=== PATIENT | female | born 1985 | race Caucasian/White ===

== ENCOUNTER → 2016-05-09 | Outpatient (CLI) | payer OTHER ==
[~2016-05-09] MED LIST: DESO1TAB; DICL50TA3 PO; DOCU-94 PO; ERGO500037 PO; FERR1TAB23 PO; GADAVIST IV PRN; LEVO112T2 PO; MULT-506 PO; ONDA4TAB46 PO; PRT/20 PO; TOPI25TA99 PO; TRAM-10 PO
--- NOTE | 2016-05-09 19:13 | DIAGNOSTIC IMAGING REPORT ---
Brain MRI WITH AND WITHOUT CONTRAST HISTORY: Headache. Fever. Fatigue. TECHNIQUE: Multiplanar multisequence MRI of the brain was performed both before and after the intravenous administration of contrast. COMPARISON STUDY: None. FINDINGS: There are no areas of restricted diffusion to suggest acute infarction. The midline structures are intact. The paranasal sinuses are clear. The mastoid air cells are clear. The ventricles and sulci are within normal limits for age. There is no mass, hematoma, midline shift. The major vascular flow-voids at the skull base are well maintained. Postcontrast sequences show no areas of abnormal enhancement. IMPRESSION: No acute intracranial abnormality. Electronically signed by: Brando Camacho M.D. 05/09/2016 7:12 PM Dictated Date/Time: 05/09/2016 7:04 PM
== END | disposition home or self-care (01) ==
LOC: C.MRI 18:02
PROVIDERS: ATTEND Internal Medicine
DX: R51 Headache (principal); R53.83 Other fatigue

== ENCOUNTER → 2016-05-16 | Outpatient (CLI) | payer OTHER ==
[~2016-05-16] MED LIST changes: -GADAVIST IV PRN
[2016-05-22 18:36] LABS: MUMPS IgG VALUE 3.15; MUMPS VIRUS ANTIBODY IGM <1:20
== END | disposition home or self-care (01) ==
LOC: C.LAB1850 15:30
PROVIDERS: ATTEND Internal Medicine Infectious Disease
DX: R50.9 Fever, unspecified (principal)

== ENCOUNTER → 2016-05-28 | Outpatient (CLI) | payer OTHER ==
[2016-05-28 11:22] LABS: TOTAL IRON BINDING CAPACITY 497 mcg/dl (250-450)
[2016-06-02 01:27] LABS: ALBUMIN 3.9 G/DL (3.8-4.8); ANTI-CENTROMERE AB <1.0 NEG AI (<1.0 NEG); ANTI-SS-A <1.0 NEG AI (<1.0 NEG); ANTI-SS-B <1.0 NEG AI (<1.0 NEG); CYCLIC CITRULLINATED PEPT IGG <16 UNITS (<20); DNA ds CRITHIDIA NEGATIVE (NEGATIVE); GAMMA GLOBULIN 1.2 G/DL (0.8-1.7); MICROSOMAL AB 6 IU/ML (<9); MYELOPEROXIDASE AB <1.0 AI (<1.0); PARVOVIRUS IgG INDEX 5.9 (<0.9); PARVOVIRUS IgM INDEX 0.4 (<0.9); Sm Antibody <1.0 NEG AI (<1.0 NEG); TOTAL PROTEIN 7.2 G/DL (6.2-8.3)
== END | disposition home or self-care (01) ==
LOC: C.RAD1850 08:55
PROVIDERS: ATTEND Internal Medicine Rheumatology
DX: R51 Headache (principal); R76.8 Other specified abnormal immunological findings in serum; R50.9 Fever, unspecified; E55.9 Vitamin D deficiency, unspecified

== ENCOUNTER 2016-05-29 07:02 | Day surgery (SDC) | payer OTHER ==
[~2016-05-29] VITALS: Ht 172.7 cm; Wt 108.0 kg
[2016-05-29] VITALS (10 sets, daily range): BP systolic 125–145; BP diastolic 76–95; PULSE 63–81; TEMP 37.3; O2SAT 96–99; Ht 172.7 cm; Wt 108.0 kg
[2016-05-29] MEDS ORDERED: DESO1TAB (07:37)
[2016-05-29] MEDS ORDERED: TRAM-10 PO (07:37)
[2016-05-29] MEDS ORDERED: PRT/20 PO (07:37)
[2016-05-29] MEDS ORDERED: LEVO112T2 PO (07:37)
--- NOTE | 2016-05-29 09:38 | DIAGNOSTIC IMAGING REPORT ---
FLUOROSCOPICALLY GUIDED LUMBAR PUNCTURE CLINICAL HISTORY: Headache. FLUOROSCOPY TIME: 0.6 minutes. A single fluoroscopic spot image. PROCEDURE: The procedure, risks and benefits were discussed with the patient including the risk of spinal headache, bleeding and infection. The patient agreed to the procedure and informed written consent was obtained. The procedure was performed by Dr. Camacho following a timeout. The left L4 L4 interlaminar space was targeted. Skin overlying the space was prepped and draped in the usual sterile fashion and local anesthesia was achieved with 1% lidocaine. Under intermittent fluoroscopic guidance, a 20-gauge x 4 3/4 in. Sprotte needle was inserted into the thecal sac. A total of 10 cc of clear, colorless cerebral spinal fluid was obtained and spread amongst 4 vials. The patient tolerated the procedure well. There were no immediate complications. The specimens were sent to the laboratory at the request of the referring physician. IMPRESSION: Successful fluoroscopic guided lumbar puncture with removal of 10 cc of clear, colorless cerebral spinal fluid. No immediate complications. Opening pressure was 18 cm of H2O. Electronically signed by: Brando Camacho M.D. 05/29/2016 9:36 AM Dictated Date/Time: 05/29/2016 9:36 AM
--- NOTE | 2016-05-29 09:39 | Discharge Instructions ---
Discharge Instructions Procedure Procedure Date: May 29, 2016. Reason for visit: Fever, Intractable Headache With Opening Pressure. Discharge Discharge Date: May 29, 2016. Discharge Diagnosis: same Instructions Activity Recommendations: No limitations Return to School/Work: no limitations Recommended Home Diet: Resume Previous Diet Provider Instructions: ACTIVITY RECOMMENDATIONS: * Rest today. * Resume regular activity in one day. MEDICATIONS: * May take Tylenol or Ibuprofen as needed for pain. DIET: * Resume previous diet. SPECIAL CARE INSTRUCTIONS: Call your doctor if: * Temperature above 101 degrees F. * Pain not relieved by pain medicine ordered. * Increased drainage or redness from incision. * Notify your doctor with any questions or concerns. Call your doctor or go to the nearest Emergency Department if you experience: * Increased chest pain or shortness of breath. FOLLOW UP VISIT: Follow-up with Referring Physician as scheduled. Allergies Coded Allergies: Sulfa Antibiotics (Verified Allergy, Unknown, Breathing issues as baby, ) Diana Hernandez Recommendations: Call your doctor if: * Temperature above 101 degrees * Pain not relieved by pain medicine ordered * There is increased drainage or redness from any incision * You have any unanswered questions or concerns. Your Doctors Instructions noted above were prepared by provider Brando Camacho. Patient Signature Section: Patient Instructions Signature Page Ignacia Plascencia Patient (or Guardian) Signature/Date: I have read and understand the instructions given to me by my caregivers. Caregiver/RN/Doctor Signature/Date: The above-named patient and/or guardian has received patient instructions on this date. + Original Patient Signature Page (only) stays with chart. Please make copy for patient.
[2016-05-29] MEDS ORDERED: ACETAMINOPHEN 500 MG TAB PO PRN (09:45)
[2016-05-29 10:00] LABS: CSF APPEARANCE CLEAR; CSF COLOR COLORLESS; CSF XANTHOCHROMIC NO XANTHOCHROMIA
[2016-05-29 10:01] LABS: CSF TOTAL PROTEIN 28.9 mg/dl (15.0-45.0)
[2016-05-29] MEDS ORDERED: ACETAMINOPHEN 500 MG TAB PO ONE (10:12)
[2016-06-21 15:49] LABS: EBV DNA QUANT PCR <200 copies/mL (<200); EBV DNA QUANT SOURCE CSF; LYME DNA PCR CSF OR SYNOVIAL Not detected (Not Detected); LYME DNA SOURCE CSF; LYME IGG CSF NO BANDS DETECTED; LYME IGM CSF NO BANDS DETECTED
[2016-07-12] MEDS ORDERED: MULT-506 PO (11:41)
[2016-07-12] MEDS ORDERED: ERGO500037 PO (11:41)
[2016-07-12] MEDS ORDERED: DOCU-94 PO (11:41)
[2016-07-12] MEDS ORDERED: FERR1TAB23 PO (11:41)
[2016-07-12] MEDS ORDERED: TOPI25TA99 PO (11:41)
[2016-07-12] MEDS ORDERED: ONDA4TAB46 PO (11:41)
[2016-07-12] MEDS ORDERED: DICL50TA3 PO (11:41)
== END 2016-05-29 13:30 | disposition home or self-care (01) ==
LOC: C.ACU 07:02
PROVIDERS: ATTEND Psychiatry & Neurology Neurology
DX: R51 Headache (principal)

== ENCOUNTER → 2016-06-11 | Outpatient (CLI) | payer OTHER ==
[~2016-06-11] MED LIST changes: +OPTIRAY 320 IV PRN
--- NOTE | 2016-06-11 09:32 | DIAGNOSTIC IMAGING REPORT ---
CT ANGIOGRAPHY HEAD COMBO CT DOSE: 749.67 mGy.cm CLINICAL HISTORY: Intractable headache. TECHNIQUE: Unenhanced and arterial phase imaging of the head was performed. Injection of 92 cc of Optiray 320 IV was uneventful. Sagittal and coronal reconstructed reviewed as well as maximal intensity projections on an independent 3-D workstation. COMPARISON STUDY: MRI of the brain May 09, 2016. FINDINGS: No acute intracranial hemorrhage, midline shift or mass effect is present. Brain volume is normal. Ventricular system is normal. Basilar cisterns are patent. There are no extra-axial collections. Addison-white differentiation is maintained. There are no findings to suggest acute dural sinus thrombosis or acute territorial infarct. Visualized portions of the sinuses and the mastoid air cells are clear. The bilateral M1, M2, A1 and A2 segments are patent. There is no abrupt vessel cut off. No intracranial aneurysm is identified. Posterior circulation is intact. IMPRESSION: 1. No acute intracranial findings. 2. Unremarkable CTA of the head. Electronically signed by: Logan Farias M.D. 06/11/2016 9:31 AM Dictated Date/Time: 06/11/2016 9:24 AM
== END | disposition home or self-care (01) ==
LOC: C.CTS 08:58
PROVIDERS: ATTEND Physician Assistant
DX: R51 Headache (principal)

== ENCOUNTER → 2016-07-27 | Day surgery (SDC) | payer OTHER ==
[2016-07-12 11:41] VITALS: Ht 172.7 cm; Wt 106.8 kg
[~2016-07-27] VITALS: Ht 172.7 cm; Wt 106.8 kg
[~2016-07-27] MED LIST changes: +FENTANYL CITRATE INJ 50 MCG/1 ML 2 ML VIAL ONE; +FRCT/ PO; +JNL12021 PO; +LEVO125T5 PO; +MIDAZOLAM HCL 5 MG/ML 1 ML VIAL ONE; +NRN600 PO; -OPTIRAY 320 IV PRN; -PRT/20 PO
--- NOTE | 2016-07-27 12:39 | Endo History and Physical ---
History & Physical Date of Service: July 27, 2016. Chief Complaint: Bloating, elevated TTG level,, nausea Referring Physician: Jaime History of Present Illness 30 yo CF who presents for EGD secondary to Positive celiac antibodies. Past Surgical History Hx Cardiac Surgery: No Hx Internal Defibrillator: No Hx Pacemaker: No Hx Abdominal Surgery: No Hx of Implantable Prosthesis: No Hx Post-Op Nausea and Vomiting: No Hx Cancer Surgery: No Hx Thoracic Surgery: No Hx Orthopedic: Yes (LEFT KNEE ARTHROSCOPY) Hx Urinary Tract Surgery: No Family History None Social History Smoking Status: Never Smoker Hx Substance Use: No Hx Alcohol Use: Yes ("SOCIALLY") Allergies Coded Allergies: Sulfa Antibiotics (Verified Allergy, Unknown, Breathing issues as baby, 03/03) Current Medications Reported Home Medications Medications Dose Route/Sig Max Daily Dose Days Date Category Zofran (Ondansetron HCl) 4 Mg Tab 4 Mg PO Q8H PRN 07/12/16 Reported Multivitamin (Multivitamins) Tab 1 Tab PO QAM 07/12/16 Reported Colace (Docusate Sodium) 100 Mg Cap 1 Cap PO BID PRN 30 07/12/16 Reported Vitamin D 47477 Unit (Ergocalciferol) 50,000 Unit Cap 50,000 Unit PO WK 07/12/16 Reported Iron (Ferrous Sulfate) 325 Mg Tab 1 Tab PO BID 07/12/16 Reported Voltaren (Diclofenac Sodium) 50 Mg Tabec 50 Mg PO BID PRN 07/12/16 Reported Topamax (Topiramate) 25 Mg Tab 25 Mg PO HS 07/12/16 Reported Ultram (Tramadol HCl) 50 Mg Tab 50 Mg PO Q6H PRN 05/29/16 Reported Emoquette (Desogestrel & Ethinyl Estradio) 1 Tab Tab QAM 05/29/16 Reported Synthroid (Levothyroxine Sodium) 112 Mcg Tab 1 Tab PO QAM 30 05/29/16 Reported Vital Signs Weight (Kilograms): 106.82 Height (Feet): 5 Height (Inches): 8 Date Time Temp Pulse Resp B/P Pulse Ox O2 Delivery O2 Flow Rate FiO2 07/27/16 12:20 36.9 71 20 132/82 98 Room Air Physical Exam General Appearance: WD/WN, no apparent distress Respiratory/Chest: Auscultation: breath sounds normal Cardiovascular: Heart Auscultation: RRR Abdomen: Bowel Sounds: normal Inspection & Palpation: soft, non-distended, no tenderness, guarding & rebound Assessment and Plan Assessment: 30 yo CF who presents for EGD secondary to Positive celiac antibodies. Plan: Proceed with EGD.
[2016-07-27] MEDS: MIDAZOLAM HCL 5 MG/ML 1 ML VIAL ONE (13:30)
--- NOTE | 2016-07-27 13:41 | Discharge Instructions ---
Endoscopy Patient Instructions Date / Procedure(s) Performed July 27, 2016. EGD Allergy Information Coded Allergies: Sulfa Antibiotics (Verified Allergy, Unknown, Breathing issues as baby, 03/03) Discharge Date / Findings July 27, 2016. Decreased duodenal folds s/p biopsies Gastric antrum biopsies Medication Instructions OK to resume all medications today as prescribed Reported Home Medications Medications Dose Route/Sig Max Daily Dose Days Date Category Zofran (Ondansetron HCl) 4 Mg Tab 4 Mg PO Q8H PRN 07/12/16 Reported Multivitamin (Multivitamins) Tab 1 Tab PO QAM 07/12/16 Reported Colace (Docusate Sodium) 100 Mg Cap 1 Cap PO BID PRN 30 07/12/16 Reported Vitamin D 17497 Unit (Ergocalciferol) 50,000 Unit Cap 50,000 Unit PO WK 07/12/16 Reported Iron (Ferrous Sulfate) 325 Mg Tab 1 Tab PO BID 07/12/16 Reported Voltaren (Diclofenac Sodium) 50 Mg Tabec 50 Mg PO BID PRN 07/12/16 Reported Topamax (Topiramate) 25 Mg Tab 25 Mg PO HS 07/12/16 Reported Ultram (Tramadol HCl) 50 Mg Tab 50 Mg PO Q6H PRN 05/29/16 Reported Emoquette (Desogestrel & Ethinyl Estradio) 1 Tab Tab QAM 05/29/16 Reported Synthroid (Levothyroxine Sodium) 112 Mcg Tab 1 Tab PO QAM 30 05/29/16 Reported Provider Instructions Activity Restrictions - No exercising or heavy lifting for 24 hours. - Do not drink alcohol the day of the procedure. - Do not drive a car or operate machinery until the day after the procedure. - Do not make any important decisions or sign important papers in 24 hours after the procedure. Following Day: - Return to full activity which may include returning to work/school. Diet Start your diet with liquids and light foods (jello, soup, juice, toast). Then eat your usual diet if not nauseated. Treatment For Common After Affects For mild abdominal pain, bloating, or excessive gas: - Rest - Eat lightly - Lie on right side Follow-Up Information Follow-up with [facility] as scheduled Anesthesia Information What You Should Know You have had a procedure that required some medicine to reduce anxiety and discomfort. This treatment is called moderate sedation. After receiving the treatment, you may be sleepy, but you will be able to breathe on your own. The effects of the treatment may last for several hours. Follow these instructions along with Activity/Diet recommendations noted above: * Do NOT do anything where dizziness or clumsiness would be dangerous. * Rest quietly at home today, then you can be up and about tomorrow. * Have a responsible person stay with you the rest of today. * You may have had an I.V. today. If so, you may take the dressing off later today. Recommendations Call your doctor if: * Trouble breathing * Continuous vomiting for more than 24 hours * Temperature above 101 degrees * Severe abdominal pain or bloating * Pain not relieved by pain medicine ordered * There is increased drainage or redness from any incision * A large amount of rectal bleeding greater than 2-3 tablespoons. (If you had a polyp/s removed or have hemorrhoids, a small amount of blood - from the rectum is to be expected.) * You have any unanswered questions or concerns. IN THE EVENT OF A SERIOUS EMERGENCY, GO TO THE NEAREST EMERGENCY ROOM Your discharge instructions were prepared by provider Nahum Truong. Patient Instructions Signature Page Ignacia Plascencia Patient (or Guardian) Signature/Date: I have read and understand the instructions given to me by my caregivers. Caregiver/RN/Doctor Signature/Date: The above-named patient and/or guardian has received patient instructions on this date. + Original Patient Signature Page (only) stays with chart. Please make copy for patient.
--- NOTE | 2016-07-27 13:46 | GI REPORT ---
Procedure Date: 07/27/2016 1:24 PM Procedure: Upper GI endoscopy Indications: Positive celiac serologies Medicines: Fentanyl 150 micrograms IV, Midazolam 7 mg IV Complications: No immediate complications. Estimated Blood Loss: Estimated blood loss: none. Procedure: Pre-Anesthesia Assessment: - Prior to the procedure, a History and Physical was performed, and patient medications and allergies were reviewed. The patient's tolerance of previous anesthesia was also reviewed. The risks and benefits of the procedure and the sedation options and risks were discussed with the patient. All questions were answered, and informed consent was obtained. Prior Anticoagulants: The patient has taken no previous anticoagulant or antiplatelet agents. ASA Grade Assessment: II - A patient with mild systemic disease. After reviewing the risks and benefits, the patient was deemed in satisfactory condition to undergo the procedure. After obtaining informed consent, the endoscope was passed under direct vision. Throughout the procedure, the patient's blood pressure, pulse, and oxygen saturations were monitored continuously. The scope was introduced through the mouth, and advanced to the third part of duodenum. The upper GI endoscopy was accomplished without difficulty. The patient tolerated the procedure well. Findings: The esophagus was normal. The entire examined stomach was normal. Biopsies were taken with a cold forceps for Helicobacter pylori testing. Decreased folds were found in the 1st part of the duodenum, decreased folds were found in the 2nd part of the duodenum, flattening was found in the 2nd part of the duodenum, scalloped mucosa was found in the 2nd part of the duodenum and thickened folds were found in the 2nd part of the duodenum. Biopsies were taken with a cold forceps for histology. Impression: - Normal esophagus. - Normal stomach. Biopsied. - Duodenal mucosal changes seen, consistent with celiac disease. Biopsied. Recommendation: - Resume previous diet. - Continue present medications. - Await pathology results. - Return to GI office as previously scheduled. Nahum Truong DO 07/27/2016 1:46:03 PM This report has been signed electronically. Note Initiated On: 07/27/2016 1:24 PM I attest to the content of the Intraoperative Record and orders documented therein, exceptions below
[2016-07-27 14:20] VITALS: BP 142/96; PULSE 82; O2SAT 96
== END | disposition home or self-care (01) ==
LOC: C.GI 11:39
PROVIDERS: ATTEND Internal Medicine
DX: R14.0 Abdominal distension (gaseous) (principal); R76.8 Other specified abnormal immunological findings in serum; K29.50 Unspecified chronic gastritis without bleeding; D72.820 Lymphocytosis (symptomatic)

== ENCOUNTER → 2016-08-06 | Outpatient (CLI) | payer OTHER ==
[~2016-08-06] MED LIST changes: -FENTANYL CITRATE INJ 50 MCG/1 ML 2 ML VIAL ONE; -MIDAZOLAM HCL 5 MG/ML 1 ML VIAL ONE
[2016-08-06 13:12] LABS: COMPLETE YES; EOS % 0.8 %; HEMATOCRIT 41.1 % (37-47); LYMPH % 32.1 %; LYMPH ABS # 1.59 K/uL (1.2-3.4); MEAN CELL VOLUME 90.7 fL (80-100); MEAN CORPUSCULAR HEMOGLOBIN 31.3 pg (25-34); MEAN CORPUSCULAR HGB CONC 34.5 g/dl (32-36); MEAN PLATELET VOLUME 10.7 fL (7.4-10.4); MONO % 9.1 %; PLATELET COUNT 303 K/uL (130-400); RED BLOOD COUNT 4.53 M/uL (4.2-5.4); WHITE BLOOD COUNT 4.95 K/uL (4.8-10.8)
[2016-08-06 14:22] LABS: ALT/SGPT 26 U/L (12-78); AST/SGOT 73 U/L (15-37); BLOOD UREA NITROGEN 8 mg/dl (7-18); BUN/CREATININE RATIO 9.6 (10-20); CALCIUM 8.7 mg/dl (8.5-10.1); CARBON DIOXIDE 24 mmol/L (21-32); CHLORIDE 111 mmol/L (98-107); CREATININE 0.83 mg/dl (0.60-1.20); GLUCOSE 88 mg/dl (70-99); POTASSIUM 3.8 mmol/L (3.5-5.1); SODIUM 143 mmol/L (136-145)
[2016-08-06 14:30] LABS: ALB/GLOB RATIO 1.1 (0.9-2); ALKALINE PHOSPHATASE 55 U/L (45-117); FERRITIN 26.9 ng/ml (8.0-388.0); TOTAL IRON BINDING CAPACITY 367 mcg/dl (250-450)
[2016-08-12 16:37] LABS: VIT E ALPHA-TOCOPHEROL 15.7 mg/L (5.7-19.9); VIT E BETA&GAMMA-TOCOPHEROL <1.0 mg/L (<=4.3); VITAMIN A** TC 921X 64 mcg/dL (38-98); VITAMIN B6** TC 926 35.7 ng/mL (2.1-21.7)
== END | disposition home or self-care (01) ==
LOC: C.LAB1850 11:53
PROVIDERS: ATTEND Registered Nurse
DX: E03.9 Hypothyroidism, unspecified (principal); K90.0 Celiac disease

== ENCOUNTER → 2016-08-28 | Outpatient (CLI) | payer OTHER | END | disposition home or self-care (01) | LOC: C.MAMM 09:45 | PROVIDERS: ATTEND Registered Nurse | DX: K90.0 Celiac disease (principal) ==

== ENCOUNTER → 2016-10-04 | Outpatient (CLI) | payer OTHER ==
[~2016-10-04] MED LIST changes: -FRCT/ PO; -JNL12021 PO; -LEVO125T5 PO; -NRN600 PO
[2016-10-04 14:56] LABS: THYROID STIMULATING HORMONE 2.12 uIu/ml (0.300-4.500)
== END | disposition home or self-care (01) ==
LOC: C.LAB1850 12:32
PROVIDERS: ATTEND Physician Assistant
DX: E03.9 Hypothyroidism, unspecified (principal)

== ENCOUNTER → 2016-10-26 | Outpatient (CLI) | payer OTHER | END | disposition home or self-care (01) | LOC: C.LAB1850 13:01 | PROVIDERS: ATTEND Registered Nurse | DX: K90.0 Celiac disease (principal) ==

== ENCOUNTER → 2016-12-04 | Outpatient (CLI) | payer OTHER ==
[~2016-12-04] MED LIST changes: +OPTIRAY 320 IV PRN
--- NOTE | 2016-12-04 07:32 | DIAGNOSTIC IMAGING REPORT ---
CT OF THE CHEST WITH IV CONTRAST CLINICAL HISTORY: K90.0,R09.89,R10.13 ATYPICAL CHEST AND EPIGASTRIC PAIN. BRUIT. COMPARISON STUDY: No previous studies for comparison. TECHNIQUE: Following the IV administration of 93 mL of Optiray-320, CT of the thorax was performed from the thoracic inlet to the lung bases. Images are reviewed in the axial, sagittal, and coronal planes. IV contrast was administered without complication. A dose lowering technique was utilized adhering to the principles of ALARA. CT DOSE: 1712.43 mGy.cm FINDINGS: Thyroid: Imaged portions of the thyroid gland are normal in appearance. Thoracic aorta: The thoracic aorta is normal in course and caliber, noting standard 3-vessel arch anatomy. No aneurysm or dissection is seen. Pulmonary vasculature: The pulmonary trunk is normal in caliber. There are no central filling defects identified to suggest pulmonary embolus. Note that this examination was not protocoled for the evaluation of pulmonary emboli. HEART: The heart is normal in size and configuration, without pericardial effusion. Lungs and pleural spaces: No pleural effusions are visualized. There is a tiny calcified granuloma within the right upper lobe. There is a 3 x 1.5 mm nodule within the right lower lobe. These densities are doubtful clinical significance given the patient's age. Mediastinum: There is no mediastinal lymphadenopathy. Codi: Clear. Axilla: Clear. Upper abdomen: Partially visualized upper abdominal viscera is within normal limits. Skeletal structures: There are no lytic or blastic osseous lesions. IMPRESSION: No acute intrathoracic findings. Electronically signed by: Sanjay Del Real M.D. 12/04/2016 7:31 AM Dictated Date/Time: 12/04/2016 7:25 AM
--- NOTE | 2016-12-04 07:38 | DIAGNOSTIC IMAGING REPORT ---
ABD/PELVIS COMBO CLINICAL HISTORY: 31 years-old Female presenting with celiac disease, epigastric pain, abdominal bruit. TECHNIQUE: Multidetector CT of the abdomen and pelvis was performed before and after the administration of intravenous contrast. Oral contrast was also administered. IV contrast: 93 mL of Optiray 320 A dose lowering technique was used consistent with the principles of ALARA (as low as reasonably achievable). COMPARISON: None. CT DOSE (mGy.cm): The estimated cumulative dose is 1712.[address] chest. FINDINGS: Farm Operations Manager topogram: Unremarkable. Lung bases: Lung bases clear. Normal heart size. No pericardial or pleural effusion. Liver: Normal morphology. No liver lesion. Patent hepatic vasculature. Biliary: No intrahepatic or extrahepatic biliary ductal dilatation. Normal gallbladder. Pancreas: Normal. Spleen: Normal. Adrenal glands: Normal. Kidneys and ureters: Normal. No hydronephrosis. Bladder: Incompletely evaluated secondary to underdistention. Pelvic organs: Uterus and ovaries normal. Tampon in place. Bowel: Mild stool burden in the left colon. Oral contrast has reached the transverse colon. No bowel obstruction. Normal appendix. Normal distribution of small bowel folds in the jejunum relative to the ileum. No abnormal amount of intraluminal fluid. No bowel wall thickening. Peritoneal cavity: No free fluid or intraperitoneal gas. Vasculature: Aorta and IVC patent and normal in caliber. Allowing for the lack of an arterial phase, major branch vessels of the abdominal aorta are patent and normal in course and caliber. Evaluation for stenosis at the origin of the vessels is limited in this single postcontrast phase examination. Lymph nodes: No enlarged lymph nodes in the abdomen or pelvis. Abdominal wall: Normal. Musculoskeletal: Normal. IMPRESSION: 1. No CT evidence characteristic of celiac disease. Notably this is not exclude the presence of the disease, especially in mild or early cases. 2. No acute intra-abdominal pathology. 3. No gross vascular abnormality allowing for the absence of an arterial phase. Electronically signed by: Cody Storey M.D. 12/04/2016 7:36 AM Dictated Date/Time: 12/04/2016 7:29 AM
== END | disposition home or self-care (01) ==
LOC: C.CTS 06:39
PROVIDERS: ATTEND Internal Medicine
DX: K90.0 Celiac disease (principal); R09.89 Other specified symptoms and signs involving the circulatory and respiratory systems; R10.13 Epigastric pain

== ENCOUNTER → 2016-12-07 | Outpatient (CLI) | payer OTHER ==
[~2016-12-07] MED LIST changes: -OPTIRAY 320 IV PRN
--- NOTE | 2016-12-07 09:54 | DIAGNOSTIC IMAGING REPORT ---
Biliary ultrasound CLINICAL HISTORY: R10.9 Abdominal pain COMPARISON STUDY: CT scan dated 12/04/2016 FINDINGS: The pancreas appears sonographically normal. The liver appears sonographically normal. There is no right-sided hydronephrosis. There is no ductal dilatation. The common bile duct measures 2 mm. There is tumefactive sludge within the gallbladder. No shadowing calculi are visualized. IMPRESSION: Tumefactive sludge within the gallbladder. No shadowing calculi are visualized. There is no ductal dilatation. Electronically signed by: Sanjay Del Real M.D. 12/07/2016 9:53 AM Dictated Date/Time: 12/07/2016 9:50 AM
== END | disposition home or self-care (01) ==
LOC: C.ULTR 09:28
PROVIDERS: ATTEND Registered Nurse
DX: R10.9 Unspecified abdominal pain (principal)

== ENCOUNTER → 2016-12-14 | Outpatient (CLI) | payer OTHER ==
[~2016-12-14] MED LIST changes: +SINCALIDE INJ 1.9 MCG in SODIUM CHLORIDE 0.9% 100ML 100 ML IV ONE
[2016-12-14 10:32] LABS: COMPLETE YES; HEMATOCRIT 42.5 % (37-47); IG% 0.2 %; LYMPH % 32.4 %; LYMPH ABS # 1.77 K/uL (1.2-3.4); MEAN CELL VOLUME 93.2 fL (80-100); MEAN CORPUSCULAR HEMOGLOBIN 31.1 pg (25-34); MEAN CORPUSCULAR HGB CONC 33.4 g/dl (32-36); MEAN PLATELET VOLUME 11.1 fL (7.4-10.4); MONO % 10.8 %; NEUT % 54.6 %; PLATELET COUNT 309 K/uL (130-400); RED BLOOD COUNT 4.56 M/uL (4.2-5.4); WHITE BLOOD COUNT 5.47 K/uL (4.8-10.8)
[2016-12-14 11:02] LABS: ALT/SGPT 27 U/L (12-78); AMYLASE 62 U/L (25-115); BLOOD UREA NITROGEN 7 mg/dl (7-18); BUN/CREATININE RATIO 7.7 (10-20); C-REACTIVE PROTEIN 0.33 mg/dl (0-0.29); CALCIUM 9.3 mg/dl (8.5-10.1); CARBON DIOXIDE 26 mmol/L (21-32); CHLORIDE 108 mmol/L (98-107); CREATININE 0.87 mg/dl (0.60-1.20); GLUCOSE 84 mg/dl (70-99); POTASSIUM 3.9 mmol/L (3.5-5.1); SODIUM 142 mmol/L (136-145)
[2016-12-14 11:05] LABS: ALKALINE PHOSPHATASE 54 U/L (45-117); AST/SGOT 41 U/L (15-37)
--- NOTE | 2016-12-14 12:25 | DIAGNOSTIC IMAGING REPORT ---
NUCLEAR MEDICINE HEPATOBILIARY SCAN WITH EJECTION FRACTION HISTORY: Generalized abdominal pain. COMPARISON: Abdominal ultrasound 12/07/2016. TECHNIQUE: Immediately following the intravenous administration of 5.1 mCi Tc-99m Choletec, dynamic anterior abdominal imaging pre/post 1.9 mcg of Kinevac was performed. FINDINGS: Uniform hepatic tracer accumulation is shown. Prompt intrahepatic biliary excretion is seen. The gallbladder, common bile duct, and small bowel are all visualized by 25 minutes. This appearance represents the normal sequence of biliary excretion. The gall bladder ejection fraction following administration of Kinevac was 2% (normal >35%). IMPRESSION: 1. No evidence for cystic duct obstruction. 2. Gallbladder ejection fraction is abnormally low at 2 %. Therefore, this could represent gallbladder dyskinesia. Electronically signed by: Brando Camacho M.D. 12/14/2016 12:24 PM Dictated Date/Time: 12/14/2016 12:22 PM
== END | disposition home or self-care (01) ==
LOC: C.NUCL 09:39
PROVIDERS: ATTEND Registered Nurse
DX: R10.9 Unspecified abdominal pain (principal); R93.2 Abnormal findings on diagnostic imaging of liver and biliary tract

== ENCOUNTER → 2017-02-25 | Outpatient (CLI) | payer OTHER ==
[~2017-02-25] MED LIST changes: -DESO1TAB; -DICL50TA3 PO; -DOCU-94 PO; -ERGO500037 PO; -FERR1TAB23 PO; +FRCT/ PO; +JNL12021 PO; -LEVO112T2 PO; +LEVO125T5 PO; -MULT-506 PO; +NRN600 PO; -ONDA4TAB46 PO; -SINCALIDE INJ 1.9 MCG in SODIUM CHLORIDE 0.9% 100ML 100 ML IV ONE; -TOPI25TA99 PO; -TRAM-10 PO
[2017-02-25 10:05] LABS: THYROID STIMULATING HORMONE 2.66 uIu/ml (0.300-4.500)
== END | disposition home or self-care (01) ==
LOC: C.LAB1850 08:10
PROVIDERS: ATTEND Physician Assistant
DX: E03.9 Hypothyroidism, unspecified (principal)

== ENCOUNTER → 2017-02-28 | Outpatient (CLI) | payer OTHER | END | disposition home or self-care (01) | LOC: C.LAB1850 07:51 | PROVIDERS: ATTEND Physician Assistant | DX: E27.0 Other adrenocortical overactivity (principal) ==

== ENCOUNTER → 2017-04-04 | Outpatient (CLI) | payer OTHER | END | disposition home or self-care (01) | LOC: C.LAB1850 13:19 | PROVIDERS: ATTEND Physician Assistant | DX: R51 Headache (principal); E03.9 Hypothyroidism, unspecified ==

== ENCOUNTER → 2017-05-09 | Outpatient (CLI) | payer OTHER | END | disposition home or self-care (01) | LOC: C.LABSPEC 10:29 | PROVIDERS: ATTEND Internal Medicine Endocrinology, Diabetes & Metabolism | DX: E03.9 Hypothyroidism, unspecified (principal) ==

== ENCOUNTER → 2017-05-14 | Outpatient (CLI) | payer OTHER ==
[~2017-05-14] MED LIST changes: +GADAVIST IV PRN
--- NOTE | 2017-05-14 14:02 | DIAGNOSTIC IMAGING REPORT ---
Brain MRA HISTORY: HYPOTHYROIDISM,HEADACHES TECHNIQUE: 3-D [id number] MRA of the brain was performed without contrast. COMPARISON STUDY: Head CTA 06/11/2016. FINDINGS: Visualized intracranial internal carotid arteries, distal vertebral arteries, and basilar artery are widely patent. There is no significant stenosis, occlusion, or aneurysm seen within the bilateral ACAs, MCAs, or contract technical writer. IMPRESSION: No significant stenosis, occlusion, or aneurysm within the [place] of [place]. Electronically signed by: Brando Camacho M.D. 05/14/2017 2:01 PM Dictated Date/Time: 05/14/2017 1:56 PM
--- NOTE | 2017-05-14 14:18 | DIAGNOSTIC IMAGING REPORT ---
Brain MRI WITH AND WITHOUT CONTRAST HISTORY: HYPOTHYROIDISM,HEADACHES TECHNIQUE: Multiplanar multisequence MRI of the brain was performed both before and after the intravenous administration of contrast. COMPARISON STUDY: None. FINDINGS: There are no areas of restricted diffusion to suggest acute infarction. The midline structures are intact. The paranasal sinuses are clear. The mastoid air cells are clear. The ventricles and sulci are within normal limits for age. There is no mass, hematoma, midline shift. The major vascular flow-voids at the skull base are well maintained. Postcontrast sequences show no areas of abnormal enhancement. IMPRESSION: Normal brain MRI. Electronically signed by: Brando Camacho M.D. 05/14/2017 2:17 PM Dictated Date/Time: 05/14/2017 2:05 PM
== END | disposition home or self-care (01) ==
LOC: C.MRI 12:48
PROVIDERS: ATTEND Internal Medicine
DX: E03.9 Hypothyroidism, unspecified (principal); K90.0 Celiac disease; R51 Headache

== ENCOUNTER → 2017-05-29 | Outpatient (CLI) | payer OTHER ==
[~2017-05-29] MED LIST changes: -GADAVIST IV PRN
== END | disposition home or self-care (01) ==
LOC: C.LAB1850 08:57
PROVIDERS: ATTEND Internal Medicine Endocrinology, Diabetes & Metabolism
DX: G43.919 Migraine, unspecified, intractable, without status migrainosus (principal); L65.9 Nonscarring hair loss, unspecified; E03.9 Hypothyroidism, unspecified

== ENCOUNTER → 2017-05-31 | Outpatient (CLI) | payer OTHER ==
--- NOTE | 2017-05-31 18:26 | DIAGNOSTIC IMAGING REPORT ---
R VENOUS DOPP LOWER EXT UNILAT CLINICAL HISTORY: R20.2 [id number] Swellingr/o DVT right leg pain. Edema. TECHNIQUE: Venous Doppler right leg COMPARISON STUDY: None FINDINGS: Normal study IMPRESSION: Normal venous Doppler right leg The above report was generated using voice recognition software. It may contain grammatical, syntax or spelling errors. Electronically signed by: Daryl Schaefer M.D. 05/31/2017 6:25 PM Dictated Date/Time: 05/31/2017 6:24 PM
== END | disposition home or self-care (01) ==
LOC: C.ULTR 17:49
PROVIDERS: ATTEND Psychiatry & Neurology Neurology
DX: R20.2 Paresthesia of skin (principal); R60.9 Edema, unspecified

== ENCOUNTER → 2017-07-02 | Outpatient (CLI) | payer OTHER ==
[~2017-07-02] VITALS: Ht 172.7 cm; Wt 102.4 kg
[2017-07-02 16:18] VITALS: BP 114/81; PULSE 84; Ht 172.7 cm; Wt 102.4 kg
== END | disposition home or self-care (01) ==
LOC: C.NEUR 13:05
PROVIDERS: ATTEND Physician Assistant Medical
DX: R53.83 Other fatigue (principal); R51 Headache; E03.9 Hypothyroidism, unspecified; Z88.2 Allergy status to sulfonamides; Z88.6 Allergy status to analgesic agent

== ENCOUNTER → 2017-07-30 | Outpatient (CLI) | payer OTHER | END | disposition home or self-care (01) | LOC: C.LAB1850 13:20 | PROVIDERS: ATTEND Psychiatry & Neurology Neurology | DX: G43.719 Chronic migraine without aura, intractable, without status migrainosus (principal); I82.409 Acute embolism and thrombosis of unspecified deep veins of unspecified lower extremity; E03.9 Hypothyroidism, unspecified ==